=== PATIENT | male | born 1970 | race Caucasian/White ===

== ENCOUNTER 2019-12-24 03:14 | Emergency (ER) | payer OTHER ==
--- NOTE | 2019-12-24 03:23 | EDM.PDOC ---
ED HPI GENERAL MEDICAL PROBLEM - General Chief Complaint: Upper Extremity Injury/Pain Stated Complaint: LEFT ARM PAIN GOING UP ARM Time Seen by Provider: 12/24/19 03:23 Source of Information: Reports: Patient History Limitations: Reports: No Limitations - History of Present Illness INITIAL COMMENTS - FREE TEXT/NARRATIVE: 49-year-old gentleman presents to the ED for evaluation of pain left forearm radiating up into his left medial humerus and arm into the left axilla. States his pain is sharp stabbing and zinging suggesting neurologic pain. Patient states he slipped and fell in the workplace about 4 days ago and banged the volar aspect of his left forearm on pipes on the way to the ground. Still some pain with pronation and supination at the elbow. He states he has been able to work although there is pain with screw down strength and anne marie the muscles of the forearm. He was concerned that he may have developed a blood clot up in his left axilla. Denies any chest pain or shortness of breath. Make the pain go away by he has no restrictions in range of motion of his left upper extremity. Pain appears to be neurologic in origin. Onset: Sudden Onset Date: 12/23/19 Onset Time: 20:00 (Started last evening and interfered with his ability to sleep due to the intensity of the pain.) Duration: Hour(s):, Intermittent, Waxing/Waning (88 sent from the left medial condyle to the left axilla.) Location: Reports: Lower Extremity, Left Quality: Reports: Ache (History of present illness), Burning, Other Severity: Moderate (Noting lancinating pain suggesting neurogenic etiology) Improves with: Reports: None Worsens with: Reports: Other Context: Reports: Other (Continuous occurrence last night. Trauma to the left forearm occurred 4 days ago). Denies: Activity, Exercise, Lifting, Sick Contact , Trauma Associated Symptoms: Reports: No Other Symptoms Treatments [employer]OPER: Reports: Other (see below) (None.) Left Arm Pain Score (Numeric/FACES): 2 - Related Data Allergies Allergy/AdvReac Type Severity Reaction Status Date / Time No Known Allergies Allergy Verified 12/24/19 03:22 Home Meds: Home Meds . [No Known Home Meds] 12/24/19 [History] Social & Family History - Living Situation & Occupation Living situation: Reports: Occupation: Employed Review of Systems - Review of Systems Review Of Systems: See Below Constitutional: Reports: No Symptoms Eyes: Reports: Glasses Ears: Reports: No Symptoms Nose: Reports: No Symptoms Mouth/Throat: Reports: No Symptoms Respiratory: Reports: No Symptoms Cardiovascular: Reports: No Symptoms GI/Abdominal: Reports: No Symptoms Genitourinary: Reports: No Symptoms Musculoskeletal: Reports: Other (Forearm pain due to recent fall and contusion.) Skin: Reports: No Symptoms, Bruising (He has ecchymoses of his entire volar left forearm and some early ecchymoses or yellow discoloration of the dorsal aspect of the left forearm as well.) Neurological: Reports: No Symptoms (He has no symptoms.) Psychiatric: Reports: No Symptoms ED EXAM, GENERAL - Physical Exam Exam: See Below Exam Limited By: No Limitations General Appearance: Alert, WD/WN, No Apparent Distress, Other (Vital signs reveal a temperature of 36.6. Heart rate is 93 and sinus respiratory 1 BP is 151/2 which is elevated . O2 sats 97% on room air) Eye Exam: Bilateral Eye: Normal Inspection Respiratory/Chest: No Respiratory Distress, Lungs Clear, Normal Breath Sounds, No Accessory Muscle Use, Other (Pain at the insertion of the) Cardiovascular: Normal Peripheral Pulses ( pectoralis minor or over the coracoid process.), Regular Rate, Rhythm, No Edema, No Gallop, No Murmur, No Rub Peripheral Pulses: 2+: Radial (L) (Less ulnar pulses as well), Radial (R) Extremities: Other (Emanation of his left forearm shows that he has ecchymosis from his volar wrist to the volar elbow but the tissue is not taut and is easily compressible. He has good radial and ulnar pulses. He has normal screw down strength. He does have pain however over the radial head and also over the olecranon process and slightly over the medial epicondyles. No true evidence of a ulnar nerve palsy. No pain on palpation of the biceps or the medial aspect of his arm up into the axilla. There was no axillary adenopathy. Most of his left arm and shoulder are completely normal other than slight pain with full pronation.) Psychiatric: Normal Affect, Normal Mood Skin Exam: Warm, Dry, Intact, Normal Color, No Rash Course - Vital Signs Last Recorded V/S: Last Vital Signs Temp 36.6 C 12/24/19 03:28 Pulse 93 12/24/19 03:28 Resp 16 12/24/19 03:28 BP 150/102 H 12/24/19 03:28 Pulse Ox 97 12/24/19 03:28 - Orders/Labs/Meds Orders: Active Orders 24 hr Category Date Time Status EKG Documentation Completion [RC] STAT Care 12/24/19 03:23 Inactive - Radiology Interpretation Free Text/Narrative:: 49-year-old male presents to the ED with pain in his left forearm that radiates up into his left medial axilla. This started last night and interfered with his ability to sleep tonight. Patient fell about 4 days ago in the workplace as he slipped on the ice and hit his volar left forearm hard on steel pipe. This resulted in significant soft tissue bruising of the entire forearm both medially and dorsally. Bruises from his wrist up to his elbow. Appears that he is getting some ulnar neuropathy into his left axilla or brachial plexus likely secondary to this injury. Did not happen in the last 3 days since injury it is only happened last night. X-rays of the forearm and humerus to be done. - Re-Assessments/Exams Free Text/Narrative Re-Assessment/Exam: 12/24/19 04:18 trays of the humerus are normal although he has a sliver fracture off the medial epicondyle. I cannot tell whether this is old or new but I suspect that it is old. There is also no fracture in the elbow particular the radial head is normal. The remainder the forearm is also within normal limits showed no bony injuries. I believe that he is contused his ulnar nerve probably with referred pain up the medial aspect to his axilla. This is likely to be problematic off and on for the next 2 or 3 days until the inflammation and hematoma in his forearm settles down. Advised Aleve 2 tablets every 8 hours as needed to relieve pain and inflammation. Departure - Departure Time of Disposition: 04:18 Disposition: Home, Self-Care 01 Condition: Fair Clinical Impression: Neurogenic pain, Contusion of left forearm, initial encounter - Discharge Information *PRESCRIPTION DRUG MONITORING PROGRAM REVIEWED*: Not Applicable *COPY OF PRESCRIPTION DRUG MONITORING REPORT IN PATIENT SUNIL: Not Applicable Instructions: Neuropathic Pain, Contusion, [id number] Referrals: Ken Hernandez PA-C [Primary Care Provider] - Forms: ED Department Discharge Additional Instructions: Valuation in the emergency room tonight in regards to development of a pain that seems to start in the medial aspect of your left forearm and shoot up the inside of your arm to your left armpit. Pain comes and goes but is quite intense when it shows up and is relieved by certain changes in position in the left upper extremity. History of recent fall with blunt trauma to the left forearm with obvious bruising of the entire volar aspect of the forearm to the elbow. There is also some yellow discoloration of the extensor surface of the forearm. Because of pain with full pronation supination at the elbow x-rays of the forearm and humerus or arm bones were carried out. They reveal an old sliver fracture off the inside of your elbow but I do not see any new fractures. There is no joint effusion around the elbow. I suspect the pain is neurogenic which means is coming from irritation of a nerve in your forearm likely the ulnar nerve that is intermittent sending signals into your left armpit. This is likely to be problematic for the next 3 to 5 days until the blood cleans up in the left forearm. Suggest taking Aleve 2 tablets every 8-12 hours to reduce pain and inflammation in the left arm as needed. If the pain lasts longer than a week or you develop any rash in the distribution of the left forearm which could represent shingles then you should be seen again. Sepsis Event Note - Focused Exam Date Exam was Performed: 12/25/19 Time Exam was Performed: 01:50 - My Orders Last 24 Hours: My Active Orders 12/24/19 03:23 EKG Documentation Completion [RC] STAT - Assessment/Plan Last 24 Hours: My Active Orders 12/24/19 03:23 EKG Documentation Completion [RC] STAT
--- NOTE | 2019-12-24 06:55 | CR ---
Left forearm: Two views of the left forearm were obtained. Comparison: No prior forearm study is available. No fracture or other bony abnormality is identified. Mild soft tissue swelling is noted. Impression: 1. Mild soft tissue swelling. 2. No bony abnormality is seen on two-view left forearm study. Diagnostic code #2 This report was dictated in [place] Standard Time
--- NOTE | 2019-12-24 06:55 | CR ---
Left humerus: Two views of the left humerus were obtained. Comparison: No previous study. No fracture or other bony abnormality is seen. Impression: 1. No abnormality is identified on two-view left humerus exam. Diagnostic code #1 This report was dictated in [place] Standard Time
== END 2019-12-24 04:20 | disposition home or self-care (01) ==
LOC: JD.ED 03:14
DX: S50.12XA Contusion of left forearm, initial encounter (principal); M79.2 Neuralgia and neuritis, unspecified; W00.0XXA Fall on same level due to ice and snow, initial encounter; Y99.0 Civilian activity done for income or pay
CPT/HCPCS: 73060-26-LT; 73060-LT; 73090-26-LT; 73090-LT; 99283

== ENCOUNTER 2021-02-27 06:30 | Emergency (ER) | payer OTHER ==
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
[2021-02-27] MEDS ORDERED: Lactated Ringers 500 ML IV ONE (06:54)
[2021-02-27] MEDS ORDERED: Ondansetron 4 MG/2 ML SDV IVPUSH ONE (07:06)
[2021-02-27] MEDS ORDERED: Pantoprazole 40 MG Vial IVPUSH ONE (07:06)
[2021-02-27] MEDS ORDERED: Dextrose 5%-Lactated Ringers 1,000 ML IV SCH (07:30)
[2021-02-27] MEDS ORDERED: Aluminum Hydroxide/Magnesium Hydroxide/Simethicone Susp 30 ML Cup PO ONE (08:00)
--- NOTE | 2021-02-27 08:05 | CR ---
Chest: Portable view of the chest was obtained. Comparison: No prior study. Heart size and mediastinum are normal. Lungs are clear with no acute parenchymal change seen. No acute osseous abnormality is appreciated. Impression: 1. Nothing acute is seen on portable chest x-ray. Diagnostic code #1
[2021-02-27] MEDS ORDERED: Tranexamic Acid 1,000 MG in Sodium Chloride 0.9% 100 ML IV ONE (08:15)
[2021-02-27] MEDS ORDERED: Iopamidol 612 MG/ML 50 ML SDV IVPUSH ONE (08:45)
[2021-02-27] MEDS ORDERED: Iopamidol 612 MG/ML 100 ML Bottle IVPUSH ONE (08:45)
[2021-02-27] MEDS ORDERED: Sodium Chloride 0.9% 10 ML Syringe FLUSH PRN (08:45)
[2021-02-27] MEDS ORDERED: Pantoprazole 80 MG in Sodium Chloride 0.9% 100 ML IV SCH (08:45)
--- NOTE | 2021-02-27 09:35 | CT ---
CT abdomen and pelvis Technique: Multiple axial sections were obtained from above the dome of the diaphragm inferiorly through the pubic symphysis. Intravenous contrast was utilized. No oral contrast has been given. Delayed images were also obtained through the bladder. Reconstructed coronal and sagittal images were obtained. Comparison: No prior abdominal imaging is available. Findings: Visualized lung bases show nothing acute. Small liver lesion is noted anteriorly within the right lobe of the liver. This shows slight areas of enhancement and most likely represents a small hemangioma measuring 1.3 cm. No additional abnormality is appreciated within the liver. Craniocaudal length of the spleen is normal at 11.5 cm. Adrenal glands show no nodule. No abnormality is appreciated within the pancreas. Gallbladder contains no calcified gallstones. Kidneys show symmetric contrast enhancement with no hydronephrosis or mass being seen. Abdominal aorta shows no aneurysm. No retroperitoneal adenopathy or mesenteric abnormalities are appreciated. Appendix is not visualized with certainty. No pelvic mass or adenopathy is seen. Small fat-containing left inguinal hernia is noted. There is evidence of previous surgery within a loop of small bowel. This loop is slightly dilated which is most likely chronic. Delayed images show contrast within the distal ureters and within the bladder. Bone window settings were reviewed which show no acute osseous finding for the patient's age. Impression: 1. Small fat-containing left inguinal hernia. 2. Spleen size measures normal. 3. Prior small bowel surgery. Small bowel in this area appears slightly dilated which is most likely due to previous surgery. 4. No additional abnormality is appreciated on CT study of the abdomen and pelvis. Diagnostic code #2
== END 2021-02-27 11:10 ==
LOC: JD.ED 06:30
DX: K92.2 Gastrointestinal hemorrhage, unspecified (principal); D47.3 Essential (hemorrhagic) thrombocythemia; D72.829 Elevated white blood cell count, unspecified
CPT/HCPCS: 36415; 71045; 74177; 80053; 82553; 83690; 83735; 83880; 84484; 85007; 85027; 85610; 85730; 87635; 96365; 96367; 96375; 96376; 99285; A9270; C9113; J2405; J7120; J7121; Q9967; 93010; U0002

== ENCOUNTER 2021-09-20 07:52 | Emergency (ER) | payer OTHER ==
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
[2021-09-20] MEDS ORDERED: Dextrose 5%-0.9% NaCl 1,000 ML IV SCH (08:30)
[2021-09-20] MEDS ORDERED: Metoclopramide 10 MG/2 ML SDV IVPUSH ONE (08:30)
[2021-09-20] MEDS ORDERED: Acetaminophen 325 MG Tab PO ONE (08:38)
[2021-09-20] MEDS ORDERED: HYDROmorphone 0.5 MG/0.5 ML Syringe IVPUSH ONE (08:40)
[2021-09-20 09:15] LABS: CORONAVIRUS COVID-19 NAA POSITIVE (NEGATIVE)
[2021-09-20] MEDS ORDERED: EPINEPHrine 1 MG/ML SDV IM PRN (09:23)
[2021-09-20] MEDS ORDERED: diphenhydrAMINE 50 MG/ML SDV IVPUSH PRN (09:23)
[2021-09-20] MEDS ORDERED: methylPREDNISolone Sodium Succinate 125 MG/2 ML SDV IVPUSH PRN (09:23)
[2021-09-20] MEDS ORDERED: Famotidine 20 MG/2 ML SDV IVPUSH PRN (09:23)
[2021-09-20] MEDS ORDERED: Sodium Chloride 0.9% 10 ML Syringe FLUSH SCH (09:30)
--- NOTE | 2021-09-20 09:39 | CR ---
Chest: Frontal view of the chest was obtained. Comparison: Prior chest x-ray of 02/27/21. Heart size and mediastinum are within normal limits. Slight parenchymal density is seen within the right upper chest. Minimal density is seen within the left upper lung. Lungs otherwise are clear. Bony structures are unremarkable. Impression: 1. Mild parenchymal density within the right upper chest as well as slight density within the left upper chest. Findings could represent atelectasis as well as minimal areas of pneumonia. Diagnostic code #3
== END 2021-09-20 13:35 | disposition home or self-care (01) ==
LOC: JD.ED 07:52
DX: U07.1 COVID-19 (principal)
CPT/HCPCS: 0240U; 36415; 71045; 80053; 83615; 83735; 83880; 84484; 85025; 85379; 86140; 93005; 96374; 96375; 99284; A9270; J1170; J2765; J7042; J7050; M0245; Q0245; 93010

== ENCOUNTER 2024-04-06 11:04 | Emergency (ER) | payer OTHER, MEDICAID ==
[2024-04-06] MEDS: Gabapentin 300 MG Cap PO ONE (11:38)
[2024-04-06] MEDS: Orphenadrine 100 MG Tab.ER PO ONE (11:38)
== END 2024-04-06 12:10 ==
LOC: JD.ED 11:04
DX: M54.41 Lumbago with sciatica, right side (principal); Z79.899 Other long term (current) drug therapy
CPT/HCPCS: 99283; A9270

== ENCOUNTER 2025-08-23 16:49 | Emergency (ER) | payer MEDICAID ==
[2025-08-23 17:25] LABS: BASOPHILS ABSOLUTE AUTO 0.0 K/mm3 (0.0-0.2); BASOPHILS PERCENT AUTO 0.4 % (0.0-1.0); EOSINOPHILS ABSOLUTE AUTO 0.0 K/mm3 (0.0-0.4); EOSINOPHILS PERCENT AUTO 0.6 % (0.0-6.0); IMMATURE GRAN ABSOLUTE AUTO 0.04 K/mm3 (0.00-0.05); IMMATURE GRAN PERCENT AUTO 0.8 % (0.0-0.4); LYMPHOCYTES ABSOLUTE AUTO 0.7 K/mm3 (1.0-4.8); LYMPHOCYTES PERCENT AUTO 13.8 % (24.0-44.0); MEAN PLATELET VOLUME 8.8 fl (9.4-12.4); MONOCYTES ABSOLUTE AUTO 0.5 K/mm3 (0.0-0.8); MONOCYTES PERCENT AUTO 9.7 % (0.0-8.0); NEUTROPHILS ABSOLUTE AUTO 3.5 K/mm3 (1.8-7.7); NEUTROPHILS PERCENT AUTO 74.7 % (41.0-71.0); NRBC ABSOLUTE 0.00 (0.00-0.02); NRBC PERCENT 0.0 % (0.0-0.2); PLATELET COUNT,PLT 458 K/mm3 (150-400); RED BLOOD CELL COUNT 3.91 M/mm3 (4.52-5.90); WHITE BLOOD CELL COUNT,WBC 4.72 K/mm3 (3.9-11.3)
[2025-08-23 18:34] LABS: CORONAVIRUS COVID-19 NAA NEGATIVE (NEGATIVE); INFLUENZA A NAA NEGATIVE (NEGATIVE); RESPIRATORY SYNCYTIAL VIR NAA NEGATIVE (NEGATIVE)
[2025-08-23 18:45] LABS: A/G RATIO 1.0 (1-2); ALANINE AMINOTRANSFERASE,ALT 56 U/L (16-63); BILIRUBIN TOTAL 1.0 mg/dL (0.2-1.0); BLOOD UREA NITROGEN,BUN 16 mg/dL (7-18); CARBON DIOXIDE,CO2 30 mEq/L (21-32); CHLORIDE,CL 105 mEq/L (98-107); CREATININE 1.2 mg/dL (0.7-1.3); EST CRCL DRUG DOSING (CG) 66.50 mL/min; ESTIMATED GFR 71 mL/min (>60); SODIUM,NA 141 mEq/L (136-145); TROPONIN I HIGH SENSITIVITY 26 pg/mL (<=76); TSH 1.069 uIU/mL (0.358-3.74)
[2025-08-23 18:52] LABS: APPEARANCE,URINE CLEAR (Clear); GLUCOSE,URINE NEGATIVE (Negative); OCCULT BLOOD,URINE NEGATIVE (Negative)
[2025-08-23 18:53] LABS: GLUCOSE RANDOM 143 mg/dL (70-99); POTASSIUM,K 3.6 mEq/L (3.5-5.1)
[2025-08-23 19:08] LABS: PROTEIN TOTAL,TP 6.9 g/dl (6.4-8.2)
[2025-08-23 19:14] LABS: EPITHELIAL CELLS,URINE 0-5 /hpf (0-5)
== END 2025-08-23 19:30 | disposition home or self-care (01) ==
LOC: JD.ED 16:49
DX: D47.3 Essential (hemorrhagic) thrombocythemia (principal); I10 Essential (primary) hypertension; K21.9 Gastro-esophageal reflux disease without esophagitis; Z86.16 Personal history of COVID-19; Z79.899 Other long term (current) drug therapy
CPT/HCPCS: 36415; 71046; 71046-26; 80053; 81001; 84443; 84484; 85025; 86140; 87637; 93005; 93010; 99283; 99284